=== PATIENT | female | born 1990 | race Caucasian/White ===

== ENCOUNTER 2021-03-23 16:09 | Emergency (ER) | payer MEDICAID ==
[~2021-03-23] VITALS: Ht 157.5 cm; Wt 49.9 kg
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
--- NOTE | 2021-03-23 16:15 | NUR ---
SEEN AND EXAMINED BY .
--- NOTE | 2021-03-23 16:20 | NUR ---
IV LINE ESTABLISHED BLOOD DRAWN AND SENT TO LAB.
[2021-03-23] MEDS ORDERED: HALOPERIDOL LACTATE INJ 5 MG/ML VIAL IM ONE (16:30)
[2021-03-23] MEDS ORDERED: IV NS 0.9% 1,000 ML BAG IV ONE (16:30)
[2021-03-23] MEDS ORDERED: HALOPERIDOL LACTATE INJ 5 MG/ML VIAL ONE (16:35)
[2021-03-23 16:38] LABS: BASOPHILS % (AUTO) 0.3 % (0.0-2.0); EOSINOPHILS % (AUTO) 0.5 % (0.0-6.0); HEMATOCRIT 33 % (33-45); HEMOGLOBIN 10.7 g/dL (11.5-14.8); LYMPHOCYTES # (AUTO) 1.2 K/uL (0.8-4.8); LYMPHOCYTES % (AUTO) 28.1 % (20.0-44.0); MEAN CORPUSCULAR HGB CONC 32 g/dl (31.0-36.0); MEAN CORPUSCULAR VOLUME 76 fL (82-100); MONOCYTES # (AUTO) 0.5 K/uL (0.1-1.30); NEUTROPHILS # (AUTO) 2.6 K/uL (1.8-8.9); NEUTROPHILS % (AUTO) 60.1 % (43.0-81.0); PLATELET COUNT (AUTO) 179 K/uL (150-450); RED BLOOD CELL COUNT(AUTO) 4.38 MIL/uL (4.0-5.2); WHITE BLOOD COUNT (AUTO) 4.3 K/uL (4.3-11.0)
[2021-03-23 16:44] LABS: CALCIUM, SERUM 8.8 mg/dL (8.5-10.1); CARBON DIOXIDE 27 mmol/L (21-32); CHLORIDE 105 mmol/L (98-107); CREATININE 0.8 mg/dL (0.6-1.3); GLUCOSE 114 mg/dL (74-106); POTASSIUM 3.2 mmol/L (3.5-5.1); SODIUM SERUM 137 mmol/L (136-145); UREA NITROGEN, BLOOD 7 mg/dL (7-18)
[2021-03-23 16:52] LABS: ACETAMINOPHEN < 10 ug/ml (10-30); ALCOHOL, BLOOD < 0 mg/dL (0-0)
--- NOTE | 2021-03-23 17:07 | NUR ---
CALLED [employer] SUPERVISOR JOANNAJerri WILL CALL HER BACK AFTER PT CALMS DOWN. [phone]
--- NOTE | 2021-03-23 18:40 | NUR ---
[facility] [phone] PLEASE FAX CLINICALS TO [phone] WHEN PT IS MEDICALLY CLEARED.
--- NOTE | 2021-03-23 18:44 | NUR ---
URINE COLLECTED AND SENT
[2021-03-23 19:14] LABS: BILIRUBIN,URINE NEGATIVE (NEGATIVE); COLOR,URINE YELLOW (YELLOW); LEUKOCYTE ESTERASE ,URINE NEGATIVE (NEGATIVE); NITRITE, URINE NEGATIVE (NEGATIVE); PROTEIN,URINE NEGATIVE (NEGATIVE); UGLUCOSE NEGATIVE (NEGATIVE); UROBILINOGEN,URINE 0.2 EU/dL (0.2)
[2021-03-23] MEDS ORDERED: IV D5 LR 1,000 ML IV ONE (19:30)
--- NOTE | 2021-03-23 21:07 | NUR ---
FACESHEET AND CLINICALS FAXED TO [facility]
--- NOTE | 2021-03-23 21:58 | NUR ---
PT SLEEPING IN BED. VSS. ALL NEEDS MET AT THIS TIME. SAFET MEASURES IN PLACE.
--- NOTE | 2021-03-23 23:38 | NUR ---
CALLED [facility] SPOKE TO CELINE, STATES UNABLE TO ACCEPT PT DUE TO PT HAS [facility] MED[facility] INSURANCE (OUT OF NETWORK)
--- NOTE | 2021-03-24 04:00 | NUR ---
pt awake and alert, calm and cooperative. Able to answer questions appropirately. 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
--- NOTE | 2021-03-24 04:45 | NUR ---
PT CALM, COOPERATIVE WITH CARE. ADLS DONE. LARGE URINE X1. OFFERED PT FOOD AND WATER; TOLERATING WELL. PT DENIES PAIN & IN NO ACUTE DISTRESS AT THIS TIME. WILL CONTINUE SAFETY 1:1 SITTER MEASURES.
--- NOTE | 2021-03-24 06:43 | NUR ---
PT SLEEPING COMFORTABLY. VSS.
--- NOTE | 2021-03-24 09:10 | NUR ---
PT ABLE TO AMBULATE WITHOUT ASSISTANCE AND READY FOR DISCHARGED. DR.DERDERIAN JIM.
--- NOTE | 2021-03-24 09:16 | NUR ---
Patient given written and verbal discharge instructions. Patient verbalizes understanding of instructions. Patient is ambulatory with steady gait. Refuses offer of jail placement. Patient given list of available shelters in surrounding area.
[2021-03-24 09:17] VITALS: BP 121/68
== END 2021-03-24 09:25 | disposition home or self-care (01) ==
LOC: ER 16:13
DX: R45.1 Restlessness and agitation (principal); Z20.822 Contact with and (suspected) exposure to COVID-19; Z59.00 Homelessness unspecified; F15.90 Other stimulant use, unspecified, uncomplicated
CPT/HCPCS: 36415; 80048; 80143; 80307; 80320; 81003; 84703; 85025; 87426; 93005; 96360; 96361 ×2; 96372; 99285; C9803; J1630; J3490 ×2; G0480